=== PATIENT | female | born 1950 | race Caucasian/White ===

== ENCOUNTER 2022-07-28 09:43 | Inpatient (IN) | payer MEDICARE, OTHER ==
[~2022-07-28 09:43] MED LIST: SODIUM CHLORIDE 0.9% 1,000 ML IV ONE; SODIUM CHLORIDE 0.9% 1,000 ML ONE
[2022-07-28 10:14] LABS: COVID AG,FIA SOURCE NASAL SWAB
[2022-07-28] MEDS ORDERED: ACETAMINOPHEN 1000 MG/ISO-OSM 100 ML IV ONE ×2 (12:20→12:30)
[2022-07-28] MEDS ORDERED: KETOROLAC TROMETHAMINE 30 MG/ML VIAL IVP ONE (13:15)
[2022-07-28] MEDS ORDERED: KETOROLAC TROMETHAMINE 30 MG/ML VIAL ONE (13:16)
[2022-07-28 13:37] LABS: EOSINOPHILS % (AUTO) 1.4 % (1.0-6.0); HEMATOCRIT 39.8 % (36-46); HEMOGLOBIN 12.6 g/dL (12.0-16.0); LYMPHOCYTES # (AUTO) 2.1 K/uL (1.0-4.8); LYMPHOCYTES % (AUTO) 59.5 % (22.0-44.0); MEAN CORPUSCULAR HEMOGLOBIN 27.6 pg (26.0-34.0); MEAN CORPUSCULAR HGB CONC 31.6 G/dL (31.0-37.0); MEAN CORPUSCULAR VOLUME 87 fL (80-100); MONOCYTES # (AUTO) 0.3 K/uL (0.1-1.0); MONOCYTES % (AUTO) 8.2 % (2.0-9.0); NEUTROPHILS # (AUTO) 1.1 K/uL (1.8-7.7); NEUTROPHILS % (AUTO) 29.9 % (40.0-70.0); PLATELET COUNT (AUTO) 161 K/uL (150-450); RED BLOOD CELL COUNT(AUTO) 4.56 MIL/uL (4.00-5.20); RED CELL DISTRIBUTION WIDTH 16.4 % (11.5-14.5)
[2022-07-28 13:43] LABS: ANION GAP 10 mmol/L (8-16); CALCIUM, TOTAL 9.6 mg/dL (8.8-10.5); CARBON DIOXIDE 23 mmol/L (22-29); CHLORIDE 107 mmol/L (98-107); CREATININE 0.62 mg/dL (0.60-1.30); GLOMERULAR FILTR. RATE CALC > 60 mL/min (>60); GLUCOSE,RANDOM 94 mg/dL (70-110); POTASSIUM 4.1 mmol/L (3.5-5.1); SODIUM SERUM 140 mmol/L (136-145); UREA NITROGEN, BLOOD 13 mg/dL (7-18)
[2022-07-28 13:48] LABS: ALANINE AMINOTRANSFERASE 7 U/L (12-78); ALBUMIN 3.2 g/dL (3.4-5.0); ALKALINE PHOSPHATASE 119 U/L (46-116); ASPARTATE AMINOTRANSFERASE 18 U/L (15-37); BILIRUBIN,TOTAL 0.3 mg/dL (0.1-1.0); PHOSPHORUS 2.8 mg/dL (2.5-4.9); TOTAL PROTEIN, SERUM 8.7 g/dL (6.4-8.2)
[2022-07-28] MEDS ORDERED: RIVA20TA PO (14:26)
[2022-07-28] MEDS ORDERED: AMIT50TA4 PO (14:27)
[2022-07-28] MEDS ORDERED: MIRA50TA PO (14:40)
[2022-07-28] MEDS ORDERED: OMEP20 PO (14:40)
[2022-07-28] MEDS ORDERED: PERCT PO (14:40)
[2022-07-28] MEDS ORDERED: POTA8TAB71 PO (14:40)
[2022-07-28] MEDS ORDERED: MAGNESIUM HYDROXIDE SUSPENSION 30 ML UDCUP PO PRN (15:45)
[2022-07-28] MEDS ORDERED: MORPHINE SULFATE 2 MG/ML SYRINGE IVP PRN (15:45)
[2022-07-28] MEDS ORDERED: BISACODYL 10 MG RECTAL RECTAL SUPPOSITORY PR PRN (15:45)
[2022-07-28] MEDS ORDERED: ACETAMINOPHEN 325 MG TABLET PO PRN (15:45)
[2022-07-28] MEDS ORDERED: ZOLPIDEM TARTRATE 5 MG TABLET PO PRN (15:45)
[2022-07-28] MEDS ORDERED: MIRT45TA83 PO (15:54)
[2022-07-28] MEDS ORDERED: DIPH50CA35 PO (15:54)
[2022-07-28] MEDS ORDERED: THIA50TA13 PO (15:54)
[2022-07-28] MEDS ORDERED: LIDO700A30 TP (15:54)
[2022-07-28] MEDS ORDERED: CHOL200059 PO (15:54)
[2022-07-28] MEDS ORDERED: TIZA-194 PO (15:54)
[2022-07-28] MEDS ORDERED: HYDR-4069 PO (15:54)
[2022-07-28] MEDS ORDERED: ALBU8HFA IH (15:54)
[2022-07-28] MEDS ORDERED: PROP10TA72 PO (15:54)
[2022-07-28 15:59] VITALS: BP 132/58
[2022-07-28] MEDS: HYDROCODONE/ACETAMINOPHEN 5-325 MG TABLET PO PRN ×2 (17:37→22:38)
[2022-07-28 20:00] VITALS: BP 110/59
[2022-07-28] MEDS: METOPROLOL TARTRATE 25 MG TABLET PO SCH (20:52)
[2022-07-28] MEDS: DOCUSATE SODIUM 100 MG CAPSULE PO SCH (20:52)
[2022-07-28] MEDS ORDERED: CARISOPRODOL 350 MG TABLET PO SCH (21:00)
[2022-07-28] MEDS: ONDANSETRON HCL 4 MG/2 ML VIAL IVP PRN (23:50)
[2022-07-29 04:00] VITALS: BP 131/73
[2022-07-29] MEDS: HYDROCODONE/ACETAMINOPHEN 5-325 MG TABLET PO PRN ×3 (04:41→15:02)
[2022-07-29 07:43] LABS: ALANINE AMINOTRANSFERASE 12 U/L (12-78); ALBUMIN 2.6 g/dL (3.4-5.0); ALKALINE PHOSPHATASE 99 U/L (46-116); ANION GAP 7 mmol/L (8-16); ASPARTATE AMINOTRANSFERASE 20 U/L (15-37); BILIRUBIN,TOTAL 0.2 mg/dL (0.1-1.0); CALCIUM, TOTAL 8.9 mg/dL (8.8-10.5); CARBON DIOXIDE 25 mmol/L (22-29); CHLORIDE 108 mmol/L (98-107); CREATININE 0.69 mg/dL (0.60-1.30); GLOMERULAR FILTR. RATE CALC > 60 mL/min (>60); GLUCOSE,RANDOM 87 mg/dL (70-110); POTASSIUM 4.1 mmol/L (3.5-5.1); SODIUM SERUM 140 mmol/L (136-145); TOTAL PROTEIN, SERUM 7.2 g/dL (6.4-8.2); UREA NITROGEN, BLOOD 19 mg/dL (7-18)
[2022-07-29 07:58] VITALS: BP 105/55
[2022-07-29] MEDS: METOPROLOL TARTRATE 25 MG TABLET PO SCH (08:12)
[2022-07-29] MEDS: DOCUSATE SODIUM 100 MG CAPSULE PO SCH (08:13)
[2022-07-29] MEDS ORDERED: METOPROLOL TARTRATE 25 MG TABLET PO SCH (09:00)
[2022-07-29] MEDS ORDERED: OMEPRAZOLE 20 MG CAPSULE PO SCH (09:00)
[2022-07-29] MEDS ORDERED: PANTOPRAZOLE SODIUM 40 MG DR TABLET PO SCH (09:00)
[2022-07-29] MEDS ORDERED: METO25 PO (11:49)
[2022-07-29] MEDS ORDERED: CARISOPRODOL 350 MG TABLET PO ONE (12:00)
[2022-07-29] MEDS ORDERED: RIVAROXABAN 20 MG TABLET PO ONE (12:00)
[2022-07-29] MEDS: ONDANSETRON HCL 4 MG/2 ML VIAL IVP PRN (15:05)
[2022-07-29 15:51] VITALS: BP 123/72
[2022-07-29] MEDS ORDERED: LIDOCAINE/PF 2% 5 ML SYRINGE IVP ONE (18:20)
[2022-07-29] MEDS ORDERED: PROPOFOL 1% 20 ML VIAL IVP ONE (18:20)
== END 2022-07-29 18:21 | disposition home or self-care (01) | DRG 392 ==
LOC: SURGERY 09:43 → 5N 15:23
PROVIDERS: ADMIT Internal Medicine; ATTEND Internal Medicine Gastroenterology
PROC: 0D748ZZ Dilation of Esophagogastric Junction, Via Natural or Artificial Opening Endoscopic (ICD-10-PCS; principal; 2022-07-28 11:00)
DX: K22.2 Esophageal obstruction (principal); I47.20 Ventricular tachycardia, unspecified; Z20.822 Contact with and (suspected) exposure to COVID-19; K21.9 Gastro-esophageal reflux disease without esophagitis; E56.9 Vitamin deficiency, unspecified; J45.909 Unspecified asthma, uncomplicated; I49.3 Ventricular premature depolarization; E66.9 Obesity, unspecified; K44.9 Diaphragmatic hernia without obstruction or gangrene; Z88.6 Allergy status to analgesic agent; Z98.84 Bariatric surgery status; Z86.718 Personal history of other venous thrombosis and embolism
CPT/HCPCS: 80053; 83735; 84100; 85025; 93005; 93306; J0131; J1885; J2405; J2704; J3490; J7030